=== PATIENT | male | born 1970 ===

== ENCOUNTER → 2021-06-13 11:27 | Outpatient (CLI) | payer OTHER, SELFPAY ==
[2021-06-13 14:54] LABS: COVID19 -Nasal RAPID Negative (Negative)
== END ==
PROVIDERS: Visit Provider Nurse Practitioner
DX: Z01.812 Encounter for preprocedural laboratory examination (principal); Z20.822 Contact with and (suspected) exposure to COVID-19
CPT/HCPCS: 87635

== ENCOUNTER 2021-06-15 08:35 | Observation (INO) | payer OTHER, SELFPAY ==
[2021-06-08 08:38] VITALS: BMI 24.3
[2021-06-15] VITALS (21 sets, daily range): BP systolic 94–147; BP diastolic 44–88; PULSE 55–77; RESP 8–18; TEMP 35.7–36.6; O2SAT 94–100; BMI 24.3
[2021-06-15] MEDS: LACTATED RINGERS 1,000 ML 42 ML IV ×2 (09:05→11:18)
--- NOTE | 2021-06-15 09:12 | PM.PREOP ---
Pre-operative Note COVID-19 COVID-19 status: Negative Result date/Date tested (Pos, Neg/Pending): 06/13/21 Interval Note History & Physical reviewed/Exam performed by Physician: Yes Changes to H&P: No
[2021-06-15] MEDS: CEFAZOLIN 1 GM VIAL 2 GM IV ×2 (09:26→17:21)
--- NOTE | 2021-06-15 10:03 | SUR.OPER ---
Prone on spine table, head in foam head support, padded chest and pelvic supports, gel pad at knees, lower legs supported by pillows; nipples, genitalia and toes free of pressure, arms secured on foam padded arm boards at <90 degrees abduction. Tape over blanket at thigh secured to table.
[2021-06-15] MEDS: BUPIVACAINE LIPOSOME 266 MG/20 ML VIAL INJ (10:12)
[2021-06-15] MEDS: BUPIVACAINE 0.25% (PF) VIAL 30 ML INJ (10:13)
--- NOTE | 2021-06-15 11:34 | P.OP_ITS ---
Operative Date/Time/Diagnoses Date of procedure: 06/15/21 Time of procedure: 11:34 Pre-op diagnosis: 1. L4-5, L5-S1 spinal stenosis 2. Hx of L5-S1 laminectomy with epidural scarring and radiculopathy 3. L5-S1 spondylolisthesis Post-op diagnosis: same Procedure & Clinicians Procedure: 1. L5-S1 Postero-lateral and posterior interbody fusion 2. L5-S1 interbody cage placement. 3. L5-S1 decompressive laminectomy with bilateral facetecomies 4. L5-S1 Posterior non-segmental instrumentation 5. L4-5 left hemilaminectomy 6. [place] of bone marrow from iliac crest 7. Utilization of microsurgical technique and operating microscope Same procedure as scheduled: Yes Indications: Patient has been having chronic back pain and worsening lumbar radiculopathy. Patient failed multiple conservative management with worsening pain weakness and numbness in her lower extremity. Patient has been having difficulty performing activity of daily living. After discussing risks benefits of treatment options, patient elected proceed with surgery. Surgeon: Scott Moura Conservation Enforcement Officer: Joe Ledesma Click Yes if Unassisted: No Anesthesia Type: General Operative Notes Closure Type: primary Specimen(s): none sent Prosthetic devices, grafts, tissues, transplants, or devices: Globus CREO MIs screws, Rise cage Estimated Blood Loss (mL): 50 Blood products transfused: none Procedure in detail: Patient was seen in the preoperative area. Risks and benefits of the surgery was discussed with the patient. Informed consent was obtained from the patient and placed in the chart. Surgical site was marked. Patient was taken to the operative room. General anesthesia was administered. Prophylactic antibiotic was given to the patient less than 30 min before the incision was made. Patient was placed into a prone position on the [place] table. Patient's back was then prepped and draped in the sterile fashion. Time- out was performed at this time. Using AP and lateral C-arm imaging the interval between L4-5 L5-S1 was identified and marked on patient's back. A 2 inch incision 2 in from midline was made on the left side first. The fascia was incised in line with skin incision. Globus MARS retractors was placed inside the incision and docked onto the L5 lamina. Using microsurgical technique and operating microscope, a L5 laminectomy and L5-S1 facetectomy was performed using a Kerrison rongeur. The disc space at L5-S1 was identified. And a total diskectomy was performed at L5- S1 level. The endplates were decorticated using a rasp and shaver. The total diskectomy and decortication was performed at L5-S1 level in order to to accomplish a L5-S1 fusion. The local bone from the laminectomy and facetectomy was saved for local bone grafting. After the total diskectomy and decortication was completed, Trifecta bone graft material was combined with local bone that was harvested earlier. At this time, a separate skin is incision was made over the iliac crest. A Jamshidi needle was inserted into the iliac crest through a separate skin incision. 5 cc of bone marrow aspiration was obtained through the separate skin incision using a Jamshidi needle from the iliac crest. The bone marrow aspiration was combined with local bone and the Trifecta bone grafting material. The bone grafting material was placed into the L5-S1 interbody space along with a expandable cage. The cage was expanded to its maximum height using the torque limiting screwdriver. During the process of laminectomy and decompression, a small pinhole size dural defect was encountered after removing a piece of large bone spur. The defect was too small to be surgically repaired. DuraGen and Tisseel was used to patch the defect. After the patch was completed no CSF leakage was visualized. At this time the MARS retractor was redirected over the L4 lamina. Using micro surgical technique and operating microscope, a L4-5 heminectomy was performed using the Kerrison rongeur. The ligamentum flavum was also resected at the side of the hemilaminectomy for further decompression of the epidural space. At this time a mirror image incision was made on the right side. The fascia was incised in line with the skin incision. Globus MARS retractor was inserted and docked onto the L5-S1 posterolateral gutter. Using the power drill, posterior- lateral decortication was performed at L5-S1 level until bleeding cortical bone was identified. The remaining bone grafting material was placed into the L5-S1 posterior lateral gutter he order to accomplish posterolateral fusion at the L5- S1 level. Using the double C-arm technique, pedicle screws were placed into the L5 and S1 pedicles bilaterally. This was done by placing the Jamshidi needle into the pedicles, then placing the guidewires over the Jamshidi needle, and finally placing the cannulated screws over the guidewires bilaterally. After the pedicle screws were placed, 2 titanium rods was locked into the heads of the pedicle screws using locking caps and torque limiting screwdriver. After all the hardware was placed, and confirmed with AP and lateral C-arm imaging, the wound was then irrigated with sterile normal saline and packed with Ray-Nereyda gauze for 3 min to accomplish hemostasis. After the gauze was removed the deep fascia was closed with #1 Vicryl suture. The subcutaneous layer was closed with 2-0 Vicryl. The skin was closed with skin manuela. Patient tolerated the procedure well. There were no complications. Complications: none Post-operative Condition: stable Disposition: PACU Plan for aftercare: Admit to inpatient hospital
--- NOTE | 2021-06-15 11:48 | DI.RAD.S_ITS ---
PROCEDURE: XR LUMBAR SPINE 2-3V INDICATIONS: L5-S1 TLIF TECHNIQUE: Frontal and lateral low resolution fluoroscopic spot film of the lower lumbar spine was obtained intraoperatively. COMPARISON: None. FINDINGS: Fluoroscopic low resolution spot films shows L5-S1 discectomy with fusion cage and posterior orlando and screw instrumentation in good position. IMPRESSION: Fluoroscopic guidance Approved by: Thierry Florentino M.D. on 06/15/2021 at 11:51
[2021-06-15] MEDS: fentaNYL 100 MCG/2 ML INJ IV ×2 (12:17→12:32)
[2021-06-15] MEDS: OXYCODONE/ACETAMINOPHEN 5/325 TABLET 1 TAB PO (12:40)
--- NOTE | 2021-06-15 13:11 | PC.NURSE ---
Day shift: Pt on AC unit from PACu at approx 1311.
--- NOTE | 2021-06-15 13:14 | PC.NURSE ---
Day shift: hE IS a&oX4. rEPORTS INCREASE IN BACK PAIN. cms OK AND CAN MOVE BILAT FEET. vs wnl. ra 98%. Tolerating foot SCD's. Agrees to ot get OOB w/o help from staff. Denies any nausea or chest pain. Will continue w/ plan of care.
[2021-06-15] MEDS: ACETAMINOPHEN 325 MG TABLET 650 MG PO ×2 (13:29→21:02)
[2021-06-15] MEDS: hydrOXYzine pamoate 25 MG CAPSULE PO ×2 (13:29→21:03)
[2021-06-15] MEDS: OXYCODONE IR 5 MG TABLET 10 MG PO ×2 (13:29→21:02)
[2021-06-15] MEDS: LACTATED RINGERS 1,000 ML 125 ML IV ×2 (13:30→21:59)
--- NOTE | 2021-06-15 16:40 | PT.IIE ---
Current Diagnoses Spondylolisthesis, lumbosacral region (06/15/21) Spinal stenosis, lumbar region without neurogenic claudication (06/15/21) Postlaminectomy syndrome, not elsewhere classified (06/15/21) Surgery Performed Operation Date: 06/15/21 11:15 Actual Procedures p L4-5 hemilaminectomy, L5-S1 TLIF w. posterior instrumentation(Not Applicable) - Scott Moura MD Medical History (Last Updated 06/08/21 @ 09:17 by Ayana Cline RN) Arthritis Embedded metal fragments Sciatic leg pain Seasonal allergies Physical Therapy Inpatient Evaluation/Re-Eval M1 PT/OT-IP Prior Functional Status Start: 06/15/21 13:37 Freq: NEEDED Status: Active Protocol: Document 06/15/21 16:40 AW (Rec: 06/15/21 16:59 AW [id number]) Medical Review Prior Functional Status Medical History Reviewed Yes Communication WNL. Pt is an effective verbal communicator. Mobility and Gait Independent without assistive device. Pt endorses LLE numbness with increased time on his feet. He denies falls. Activities of Daily Living and IADL's Independent with the exception of needing assist with shoes and socks when pain is high. Pt prefers to take soaking baths and is able to get in and out of the tub without assist. Prior Functional Level (Other details) Pt reports history of hemilamin in 2007. Social History Household Members significant other Living Arrangements House Number of Floors (Floors) One Floor Number of Stairs To Enter/Railing? 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 He has wainscotting around his toilet which he can use as needed for balance. 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 He is currently on FMLA leave to recover from surgery. He lives with his partner, Sasha, who has taken a week off of work to assist at home. M2 PT-IP Current Condition Start: 06/15/21 13:37 Freq: NEEDED Status: Active Protocol: Document 06/15/21 16:40 AW (Rec: 06/15/21 16:59 AW [id number]) Physical Therapy Current Condition Current Condition Evaluation Date 06/15/21 Treatment Diagnosis L4-5 hemilami; L5-S1 TLIF; impaired mobility and gait Onset Date 06/15/21 Precautions Lumbar Precautions Log Roll,No Twisting,Limit Bending,Lifting Restriction of 10 lbs,Gait Belt above Incisional Area M3 PT-IP Subjective Start: 06/15/21 13:37 Freq: NEEDED Status: Active Protocol: Document 06/15/21 16:40 AW (Rec: 06/15/21 16:59 AW [id number]) Subjective Physical Therapy Visit Type Type Initial Evaluation Visit Start Time 16:13 Visit Stop Time 16:40 Total Visit Minutes 27 Notes Pt's partner was present throughout. Number of SOAP PRESS FEEDER Visits 0 Physical Therapy Visit Comments Patient Comments Pt is willing to mobilize with PT Patient Goals Return home with SO support. Therapy Pain Assessment Pain When Pain Assessed At Rest Pain Present Pain Present Pain Reported Location low back Intensity 5 Scale Used Numeric (0 - 10) Pain Management Techniques Apply Cold,Re-positioning, Timing of Activity with Medications M4 PT-IP Mobility and Gait Start: 06/15/21 13:37 Freq: NEEDED Status: Active Protocol: Document 06/15/21 16:40 AW (Rec: 06/15/21 16:59 AW [id number]) PT-Bed Mobility Assessment Rolling Type of Rolling Log Rolling,Roll to Left Level of Assist Standby Assistance Supine to Sit Supine to Sit Standby Assistance Sit to Supine Sit to Supine Standby Assistance PT-Transfer Assessment Sit to and From Stand Sit to and from Stand Standby Assistance,Use of Upper Extremities Equipment Transfer Assistive Device Gait Belt,Front Wheeled Walker Orthotic/Prosthetic Devices or Brace: No Transfers Transfer Destination Bed,Toilet Transfer Technique ambulated with FWW Transfer Ability Level of Assist Standby Assistance Comments Mobility Comments Pt was in left sidelying as PT arrived. Educated pt on lumbar precautions and log roll bed mobility. Pt rolled further onto his left side and completed SL to sit transition SBA. BP 135/77 HR 66. He stood and used FWW to ambulate to the toilet, sitting to void SBA with light use of grab bar for support. He stood SBA and ambulated with FWW 150 feet SBA. He responded well to cues for posture and safe distance from trunk to walker frame. On return to the room, pt requested return to bed. He sat and used good log roll technique to return to left sidelying. Pt needed no assist to position himself. PT supplied fresh ice pack and armed the bed alarm. Informed RN of pt's mobility and encouraged pt to walk halls with nursing. Gait Assessment Gait Gait Assistance Required: Standby Assistance Distance (Feet) 150 Able to Maintain Weight Bearing Status Yes During Gait Assistive Devices Assistive Device Gait Belt,Front Wheeled Walker Orthotic/Prosthetic Devices or Brace: No Gait Deviations General Gait Pattern Antalgic,Flexed Trunk Factors Limiting Gait Function Factors Limiting Gait Function Pain Comments Gait Comments See mobility comments for details. Stair Climbing Assessment Comments Stair Climbing Comments Not assessed. PT-Balance Assessment Sitting Balance and Reactions Static Sitting Balance Ability Good Dynamic Sitting Balance Ability Good Standing Balance and Reactions Static Standing Balance Ability Good Dynamic Standing Balance Ability Good Device Used FWW M5 PT-IP Objective Assessments Start: 06/15/21 13:37 Freq: NEEDED Status: Active Protocol: Document 06/15/21 16:40 AW (Rec: 06/15/21 16:59 AW [id number]) Orientation Orientation/Cognition Level of Alertness Alert Orientation Name,Day of Week,Place, Situation Language Function Ability No Deficits Noted Safety Awareness Understands Safety Issues Memory Description No Deficits Noted Gross Range of Motion Upper Extremity ROM Assessment Within Functional Limits Lower Extremity ROM Assessment Within Functional Limits Strength Lower Extremity Strength Assessment Within Functional Limits Comments Strength Comments Grossly 4+/5 - 5/5 Sensation Assessment Sensation Gross Sensation WNL Muscle Tone Muscle Tone WNL Yes M6 PT-IP Treatment Start: 06/15/21 13:37 Freq: NEEDED Status: Active Protocol: Document 06/15/21 16:40 AW (Rec: 06/15/21 16:59 AW [id number]) Physical Therapy Treatment Education Education Provided Precautions,Weight Bearing Status,Post-Op Packet,Safety Other Treatments Other Treatment Performed Educated pt on PT plan of care , post op precautions, and safe use of FWW. M7 PT-IP Assessment and Plan Start: 06/15/21 13:37 Freq: NEEDED Status: Active Protocol: Document 06/15/21 16:40 AW (Rec: 06/15/21 16:59 AW [id number]) PT Summary Assessment and Plan Potential Rehabilitation Potential Good Status of Condition at Evaluation Evolving Summary Impairments Pain,ROM,Bed Mobility, Transfers,Gait Assessment Summary Florencio is a 51 yo man seen for PT evaluation on POD0 following L4-5 hemilaminectomy and L5-S1 TLIF. He is independent in all regards at baseline. He required no more than SBA for mobility on assessment and demonstrated good attention to post op precautions. PT anticipates he will be safe to discharge home with assist once medically stable. Pt will need to clear stairs prior to discharge. Goals Bed Mobility Goal Independent Transfer Goal Independent,Front Wheeled Walker Gait Goal Independent,Front Wheel Walker Gait Distance 250 Other Goals -up/down 2 steps with no rail SBA Days to Meet Goals 2 Frequency of Treatment Frequency Of Treatment Twice a Day Treatment Plan Physical Therapy Treatment Plan Bed Mobility Training,Transfer Training,Gait Training, Therapeutic Exercise,Balance Retraining,Post Op Education, Discharge Planning,Hot or Cold Pack Other Recommendations and Next Treatment review precautions; progress Focus gait; assess safety on stairs Precautions Lumbar Precautions Log Roll,No Twisting,Limit Bending,Lifting Restriction of 10 lbs,Gait Belt above Incisional Area Recommendations To Nursing Amount of Assist Needed Standby Assistance Discharge Recommendations PT Discharge Recommendations Home with Assistance Transportation Needs at Discharge Private Vehicle
[2021-06-16] MEDS: CEFAZOLIN 1 GM VIAL 2 GM IV (01:30)
[2021-06-16] MEDS: OXYCODONE IR 5 MG TABLET 10 MG PO (01:30)
[2021-06-16] MEDS: hydrOXYzine pamoate 25 MG CAPSULE PO (01:30)
[2021-06-16 02:22] VITALS: BP 114/75; PULSE 69; RESP 18; TEMP 36.4; O2SAT 95
[2021-06-16 07:10] VITALS: BP 120/71; PULSE 66; RESP 15; TEMP 36.6; O2SAT 97
[2021-06-16] MEDS: DOCUSATE 100 MG CAPSULE PO (07:42)
--- NOTE | 2021-06-16 07:48 | P.DS_ITS ---
History of Present Illness History of Present Illness Date Patient Seen: 06/16/21 Time Patient Seen: 07:48 Chief complaint: Low back pain and radiculopathy Narrative: The patient is complaining of mild back pain this morning, which is well controlled with current pain regimen. He denies any fevers, chills, night sweats. He states the numbness in his left lateral leg is improving postoperatively. He is still having some numbness on the lateral aspect of his left foot. He is working with physical therapy. Overall he is feeling well, and would like to go home today after discharge by Physical therapy. Discharge Providers Provider Discharge Date: 06/16/21 Primary care physician: Misael Puente DO Consults: 06/15/21 13:10 Consult to Occupational Therapy Evaluate & Treat Comment: Physician Instructions: Evaluate and treat Consult to Physical Therapy Evaluate & Treat Comment: Physician Instructions: Evaluate and Treat Discharge provider: Izabela Dong PA-C Summary Hospital Course Discharge Diagnosis: 1. L4-5, L5-S1 spinal stenosis 2. Hx of L5-S1 laminectomy with epidural scarring and radiculopathy 3. L5-S1 spondylolisthesis Hospital Course: Procedure: 1. L5-S1 Postero-lateral and posterior interbody fusion 2. L5-S1 interbody cage placement. 3. L5-S1 decompressive laminectomy with bilateral facetecomies 4. L5-S1 Posterior non-segmental instrumentation 5. L4-5 left hemilaminectomy 6. [place] of bone marrow from iliac crest 7. Utilization of microsurgical technique and operating microscope Same procedure as scheduled: Yes Indications: Patient has been having chronic back pain and worsening lumbar radiculopathy. Patient failed multiple conservative management with worsening pain weakness and numbness in her lower extremity. Patient has been having difficulty performing activity of daily living. After discussing risks benefits of treatment options, patient elected proceed with surgery. Surgeon: Scott Moura Developmental Mathematics Instructor: Joe Ledesma Click Yes if Unassisted: No Anesthesia Type: General Operative Notes Closure Type: primary Specimen(s): none sent Prosthetic devices, grafts, tissues, transplants, or devices: Globus CREO MIs screws, Rise cage Estimated Blood Loss (mL): 50 Blood products transfused: none Status at Discharge Cognitive/behavioral status at discharge: oriented Functional status at discharge: uses cane/walker Overall status at discharge: patient is progressing back to baseline Exam Vital Signs (past 8 hours): - 08/31/21 02:22 06/16/21 07:10 Temperature 97.5 F L 97.8 F Pulse Rate 69 66 Respiratory Rate 18 15 Blood Pressure 114/75 120/71 Pulse Oximetry 95 97 Oxygen Delivery Method Room Air Oxygen Flow Rate 0 Narrative Exam Narrative: 51-year-old male, resting comfortably in bed, no acute distress. His incision demonstrates some scant bloody drainage on the left lateral incision. Bilateral lower extremities with normal motor function. Sensation is mildly decreased on the left 1st webspace and left lateral calf. Both legs are warm and dry. Bilateral calves are soft, and nontender to palpation [facility] Medical History Arthritis Embedded metal fragments Sciatic leg pain Seasonal allergies Surgical History History of surgery Hx of laminectomy Social History household members: significant other Smoking Status: Current some day smoker alcohol intake: former Discharge Assessment & Plan Assessment and Plan Assessment: The patient is progressing well status post lumbar fusion Plan of Treatment: Weight-bearing as tolerated. Limit bending, lifting, twisting. Use Tylenol for [id number] pain, and oxycodone as needed for breakthrough moderate to severe pain. The plan is to discharge home today in stable condition, after cleared by Physical therapy Discharge Plan Discharge Plan Patient Disposition: Home Discharge orders & Medications Discharge Orders: Discharge (Order); Ordered 06/16/21 Ordered By: Izabela Dong Prescriptions: New acetaminophen 500 mg capsule 500 mg PO Q4H PRN (Reason: Pain, Mild (1-3)) Qty: 90 RF: 0 docusate sodium [DOK] 100 mg Capsule 100 mg PO BID PRN (Reason: constipation) Qty: 30 RF: 0 oxycodone 5 mg Tablet See Rx Instructions .ROUTE .COMPLEX PRN (Reason: Pain, Severe (7-10)) Qty: 42 RF: 0 acetaminophen [Tylenol Extra Strength] 500 mg tablet 500 mg PO Q4-6H MDD 6 tabs/day PRN (Reason: pain) Qty: 90 RF: 0 oxycodone 5 mg capsule 5 mg PO Q4H PRN (Reason: pain) Qty: 42 RF: 0 Continued Primatene Mist RF: 0 Follow up/Referrals: Misael Puente DO [Primary Care Provider] - Scott Moura MD [Physician] - (Postop appointment in 2 weeks ) Diet/Activity/Treatments Diet: Diet as Tolerated and Regular Activity: Limit bending, lifting, twisting. Use front wheeled walker Cold/Heat Therapy: Use ice as needed for pain Skin/Wound/Dressing Care Report to your healthcare provider any signs of infection, such as:: chills, fe ignacio, night sweats, unusual drainage and unusual redness Dressing: Okay to shower after 48 hours. Please change the dressing if it becomes wet, soiled, or saturated. Visit Report/Discharge Packet Instructions: DI for Transforaminal Lumbar Interbody Fusion Stand Alone Forms: Surgery Discharge Discharge Data Primary Care Provider: Misael Puente Attending Provider: Scott Moura
--- NOTE | 2021-06-16 09:17 | CM.DANOTE ---
Addendum entered by Carola Davey LPN 06/16/21 11:14: A check in after Rounds shows that pt did well with PT and left for home in company of at 1030 Original Note: Discharge Planning/Care Management DCP: assessment: case received, EMR reviewed, d/c order noted when cleared by PT Pt is a 51 year old male who admitted yesterday for a scheduled spinal surgery. Surgeon: Dr. Moura PT did see pt yesterday and he was doing well toward his plan for home with his partner Celena to provide supportive assist. Will discuss in Team Rounds and check in with pt to confirm. Payer: [employer] Pref CM Discharge Assessment Start: 06/16/21 09:16 Freq: Status: Active Protocol: Document 06/16/21 09:16 ITV (Rec: 06/16/21 09:17 ITV [id number]) Discharge Planning Assessment Advance Directives? No History Provided By Medical Record Prior Living Arrangements House Household Members significant other Pre-Anesthesia Assessment Start: 06/08/21 08:38 Freq: Status: Active Protocol: Document 06/08/21 08:38 CAB (Rec: 06/08/21 09:19 CAB [id number]) Pre-Anesthesia Assessment Patient Information Reviewed Via Phone Assessment Assessment Completed With Patient Diagnostic Results BMP/CMP,CBC,EKG Comment Outside labs/EKG scanned, COVID screen @ 06/13/21 Primary Care Provider Misael Puente Seen Specialist in Last 12 Months Yes Specialist Seen Orthopedist Primary Language Lithuanian Police Service Technician Required No Height 170.18 cm Weight 70.307 kg Body Mass Index (BMI) 24.3 Hearing Ability Normal Visual Impairment No Limitations Visual Assist None Dentition Type Teeth, Natural Present Barriers to Learning None Hx Anesthesia Reactions No Hx Family Anesthesia Reaction No Hx Malignant Hyperthermia No Hx Blood Transfusions No Anesthesia Review Requested No alcohol intake former Alcohol Intake Frequency Other: Quit 2011 Smoking Status Current some day smoker Smoking cigarettes per day 2 Substance Use Type does not use Pain Present Pain Reported Musculoskeletal Symptoms Abnormal Gait,Back Pain, Difficulty Walking History of Falling (Recent or History of No ) Patient is completely paralyzed or No completely immobile Mental Status Oriented to own ability Is patient on oxygen? No Does patient have KYLE/SOB No Hx Sleep Apnea No Currently Taking a Beta Laine No Can You Climb a Flight of Stairs Without Yes SOB Hx Chest Pain No Hx SOB No Hx Syncope or Dizziness No Anti-Coagulant Therapy No Has a Lens Cementer No Cardiac Testing No Hx Pacemaker/ICD No Pacemaker Rep Required? No Cardiac Clearance Received Not Applicable Diet Type At Home Regular dysphagia No Urinary Catheter Present No Hx Urinary Self Catheterization No Diabetes No HgbA1C 5.5 Date 05/21/21 Hx Drug Resistant Organism No Presence of External or Internal Medical No Devices Have you had any close contact with No someone diagnosed with COVID-19? Marital Status Single Lives With significant other Prior Living Arrangements House Number of Floors (Floors) One Floor Support System Significant Other Does the Patient Have Assistance After Yes Surgery Patient Discharge Plan Description Return Home Comment Pt advised overnight length of stay per surgeon Feels Safe in Current Environment Yes Been Physically Hurt or Threatened By a No Person in Current Environment Do you have thoughts of harming yourself None or others? Are you currently considering suicide? No Do you have a plan to hurt yourself or No Plan others? Do You Have Any Spiritual Beliefs That No May Affect Your HC Choices? Do You Have Any Cultural Practices That No May Affect Your HC Choices? Comment Congregation Who Can We Speak to About Patient's Care Family, friends Identifying Code for Release of Patient Declines to issue Information Health Care Proxy/Next of Kin Sasha Anton (S.O.) Health Care Proxy Emergency Contact Name Sasha Anton (S.O.) Emergency Contact Advance Directives? No Power of Geographic Information System Surveyor No PAC Instructions Durable medical equipment, Medications to take/avoid, Nasal antibiotic,No ETOH/ petroleum product on skin DOS, NPO,Pre-surgical wash,Sturdy shoes/comfortable clothes,Do not bring valuables and remove jewelry
--- NOTE | 2021-06-16 09:25 | OT.IP.EVAL ---
Current Diagnoses Spondylolisthesis, lumbosacral region (06/15/21) Spinal stenosis, lumbar region without neurogenic claudication (06/15/21) Postlaminectomy syndrome, not elsewhere classified (06/15/21) Surgery Performed Operation Date: 06/15/21 11:15 Actual Procedures p L4-5 hemilaminectomy, L5-S1 TLIF w. posterior instrumentation(Not Applicable) - Scott Moura MD Past Medical History (Last Reviewed 06/16/21 @ 07:51 by Izabela Dong PA-C) Arthritis Embedded metal fragments History of surgery Hx of laminectomy Sciatic leg pain Seasonal allergies Surgical History (Last Reviewed 06/16/21 @ 07:51 by Izabela Dong PA-C) History of surgery Hx of laminectomy Occupational Therapy Inpatient Evaluation/Re-Eval M1 PT/OT-IP Prior Functional Status Start: 06/15/21 13:37 Freq: NEEDED Status: Discharge Protocol: Document 06/15/21 16:40 AW (Rec: 06/15/21 16:59 AW [id number]) Medical Review Prior Functional Status Medical History Reviewed Yes Communication WNL. Pt is an effective verbal communicator. Mobility and Gait Independent without assistive device. Pt endorses LLE numbness with increased time on his feet. He denies falls. Activities of Daily Living and IADL's Independent with the exception of needing assist with shoes and socks when pain is high. Pt prefers to take soaking baths and is able to get in and out of the tub without assist. Prior Functional Level (Other details) Pt reports history of hemilamin in 2007. Social History Household Members significant other Living Arrangements House Number of Floors (Floors) One Floor Number of Stairs To Enter/Railing? 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 He has wainscotting around his toilet which he can use as needed for balance. 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 He is currently on FMLA leave to recover from surgery. He lives with his partner, Sasha, who has taken a week off of work to assist at home. M2 OT-IP Current Condition Start: 06/16/21 13:00 Freq: Status: Active Protocol: Document 06/16/21 09:25 [facility] (Rec: 06/16/21 13:14 [facility] [id number]) Occupational Therapy Current Condition Current Condition Evaluation Date 06/16/21 Treatment Diagnosis S/p L4-5, L5-S1 TLIF Diagnosis Onset Date 06/15/21 M3 OT- IP Subjective and Pain Start: 06/16/21 13:00 Freq: Status: Active Protocol: Document 06/16/21 09:25 [facility] (Rec: 06/16/21 13:14 [facility] [id number]) OT- Subjective Occupational Therapy Visit Type Type Initial Evaluation Visit Start Time 09:25 Visit Stop Time 09:45 Total Visit Minutes 20 Occupational Therapy Visit Comments Patient Comments Pt's significant other in the room durign OT eval. Patient/Caregiver Goals TO go home. OT Pain Assessment Pain When Pain Assessed During Mobility Pain Present Pain Present Pain Reported M4 OT- IP ADL's Start: 06/16/21 13:00 Freq: Status: Active Protocol: Document 06/16/21 09:25 [facility] (Rec: 06/16/21 13:14 [facility] [id number]) OT KNL-Bhtm-Dpmemej General Evaluation Self-Feeding Ability Independent OT ADL-Grooming General Evaluation Grooming Ability Independent OT ADL-Dressing General Eval Upper Body Dressing Ability Independent Lower Body Dressing Ability Standby Assistance Comments OT Dressing Comments Able to show pt LB dressing equipment and pt insistent that he is comfortable and able to cross his legs over in order to do his LB dressing needs. OT ADL-Toileting General Evaluation Toileting Ability Standby Assistance Comments OT Toileting Comments Pt able to do toileting needs on his own, Able to educated pt to lean or stand to wipe to best follow his back precautions. OT ADL-Bathing Comments OT Bathing Comments Pt states to shower at home. M5 OT- IP IADL's Start: 06/16/21 13:00 Freq: Status: Active Protocol: Document 06/16/21 09:25 [facility] (Rec: 06/16/21 13:14 [facility] [id number]) OT-Instrumental Activities of Daily Living Home Safety Awareness Awareness of Need for Assistance at Home Good Awareness Ability to Problem Solve Emergency Able to Problem Solve Situations Medication Management Medication Management Comments Pt's significant other to assist with his needs as needed. Money Management Money Management Comments Pt's significant other to assist with his needs as needed. Meal Preparation Meal Preparation Comments Pt's significant other to assist with his needs as needed. Senior Web Architect Senior Web Architect Comments Pt's significant other to assist with his needs as needed. M6 OT- IP Functional Cognition Start: 06/16/21 13:00 Freq: Status: Active Protocol: Document 06/16/21 09:25 [facility] (Rec: 06/16/21 13:14 [facility] [id number]) Cognitive Factors Limiting Selfcare Function Cognitive Ability Level of Alertness Alert Patient Orientation Name,Age,Birthday,Month,Date, Year,Day of Week,Place, Situation Attention Span Ability Capable of Focused Attention, Capable of Sustained Attention Ability to Follow Commands Able to Follow Multi-Step Commands Memory Description No Deficits Noted Safety Awareness Decreased Ability to Apply Precautions,Underestimates Need for Assistance Cognitive Comments Cognitive Assessment Comments Pt needing reminders to incorporate his back precautions for needs. Pt tends to twist during ADl and mobility needs. Pt's significant other has good awareness to cue to pt for safety of back precaution needs. Pt able to walk without the FWW , but encourage pt to use the FWW initially due to pets in the house and also to build up his over endurance and strength in his core gradually. OT- Vision and Hearing OT- Hearing Assessment OT- Hearing Assessment WFL M7 OT- IP Mobility and Balance Start: 06/16/21 13:00 Freq: Status: Active Protocol: Document 06/16/21 09:25 [facility] (Rec: 06/16/21 13:14 [facility] [id number]) OT- Bed Mobility Assessment Supine to Sit Supine to Sit Assist Standby Assistance Sit to Supine Sit to Supine Assist Standby Assistance Scooting Scooting to Edge of Bed Standby Assistance Scooting Up and Down in Bed Standby Assistance OT-Transfer Assessment Sit to and From Stand Sit to and from Stand Standby Assistance Transfers Transfer Ability Standby Assistance Technique Transfer Destination Bed,Toilet Transfer Technique Stand Step Pivot Devices Transfer Assistive Devices None,Gait Belt Comments Mobility Comments Pt needs cues to come down to his elbow to keep in a side lying position versus half twist while lying down to the bed. SBA without a device. OT- Gait Assessment Comments Gait Ability Comments SBA without a device but tried and best to use FWW. OT- Balance Assessment Sitting Balance and Reactions Static Sitting Balance Ability Normal Dynamic Sitting Balance Ability Normal Standing Balance and Reactions Static Standing Balance Ability Good M8 OT- IP Objective Assessments Start: 06/16/21 13:00 Freq: Status: Active Protocol: Document 06/16/21 09:25 [facility] (Rec: 06/16/21 13:14 [facility] [id number]) OT-Muscle Tone Assessment Muscle Tone WNL Yes M9 OT- IP Assessment and Plan Start: 06/16/21 13:00 Freq: Status: Active Protocol: Document 06/16/21 09:25 [facility] (Rec: 06/16/21 13:14 [facility] [id number]) OT Summary Assessment and Plan Potential Rehabilitation Potential Good Analytic Complexity at Evaluation Low Summary OT Impairments Pain,Bathing Progress Towards Goals Progressing Toward Goals Assessment Summary Pt low complexity and main barriers are steps and needing cues to follow his back precautions. Pt can be a little impulsive at times. Pt 's significant other to stay with him to assist him as needed and also aware to cue him to follow his back precautions. Goals Bathing Goal Independent Shower Transfer Goal Independent Days to Meet Goals 1 Frequency of Treatment Frequency Of Treatment Once a Day Treatment Plan OT Treatment Plan ADL Training,Functional Mobility,Patient/Family Education,Discharge Planning Discharge Recommendations OT Discharge Recommendations Home with Assistance Transportation Needs at Discharge Private Vehicle
--- NOTE | 2021-06-16 09:38 | PT.IPTN ---
Current Diagnoses Spondylolisthesis, lumbosacral region (06/15/21) Spinal stenosis, lumbar region without neurogenic claudication (06/15/21) Postlaminectomy syndrome, not elsewhere classified (06/15/21) Surgery Performed Operation Date: 06/15/21 11:15 Actual Procedures p L4-5 hemilaminectomy, L5-S1 TLIF w. posterior instrumentation(Not Applicable) - Scott Moura MD Physical Therapy Treatment Note M2 PT-IP Current Condition Start: 06/15/21 13:37 Freq: NEEDED Status: Active Protocol: Document 06/15/21 16:40 AW (Rec: 06/15/21 16:59 AW [id number]) Physical Therapy Current Condition Current Condition Evaluation Date 06/15/21 Treatment Diagnosis L4-5 hemilami; L5-S1 TLIF; impaired mobility and gait Onset Date 06/15/21 Precautions Lumbar Precautions Log Roll,No Twisting,Limit Bending,Lifting Restriction of 10 lbs,Gait Belt above Incisional Area M3 PT-IP Subjective Start: 06/15/21 13:37 Freq: NEEDED Status: Active Protocol: Document 06/16/21 09:31 HH (Rec: 06/16/21 09:37 [id number]) Subjective Physical Therapy Visit Type Type Treatment Note Visit Start Time 09:10 Visit Stop Time 09:30 Total Visit Minutes 20 Notes Pt's partner was present throughout. Number of FUR FINISHER SEAMSTRESS Visits 0 Physical Therapy Visit Comments Patient Comments Im doing fine and aidee been walking around the room Patient Goals Return home with SO support. Therapy Pain Assessment Pain When Pain Assessed At Rest Pain Present Pain Present Pain Reported Location low back Intensity 3 Scale Used Numeric (0 - 10) Pain Management Techniques Apply Cold,Re-positioning, Timing of Activity with Medications M4 PT-IP Mobility and Gait Start: 06/15/21 13:37 Freq: NEEDED Status: Active Protocol: Document 06/16/21 09:31 HH (Rec: 06/16/21 09:37 [id number]) PT-Bed Mobility Assessment Rolling Type of Rolling Log Rolling,Roll to Right Level of Assist Standby Assistance Supine to Sit Supine to Sit Standby Assistance Sit to Supine Sit to Supine Standby Assistance PT-Transfer Assessment Sit to and From Stand Sit to and from Stand Standby Assistance,Use of Upper Extremities Equipment Transfer Assistive Device Gait Belt,Front Wheeled Walker Orthotic/Prosthetic Devices or Brace: No Transfers Transfer Destination Bed Transfer Technique ambulated with FWW and none after Transfer Ability Level of Assist Standby Assistance Comments Mobility Comments pt was in bed with at bedside upon PT arrival. No c/ o noted and agreed to mobilize with PT. He recalled all 3/3 post op precautions and used log roll to sit up at EOB on R . He stood up with FWW and amb a lap of AC unit then completed PF step with FWW x 2 with SBA. He then walked back without FWW and demonstrated good stability. However, he stated his back started getting tired once he got back to his room. He returned to his bed after and OT came in for further assessment. Gait Assessment Gait Gait Assistance Required: Standby Assistance Distance (Feet) 360 Able to Maintain Weight Bearing Status Yes During Gait Assistive Devices Assistive Device None,Gait Belt,Front Wheeled Walker Orthotic/Prosthetic Devices or Brace: No Gait Deviations General Gait Pattern Antalgic,Flexed Trunk Factors Limiting Gait Function Factors Limiting Gait Function Pain Comments Gait Comments See mobility comments for details. Stair Climbing Assessment Technique/Endurance Stair Climbing Direction Ascend and Descend Stair Climbing Technique Step to Step Number of Steps Climbed 1 Stair Climbing Set # Repetitions (reps) 2 Comments Stair Climbing Comments See mobility comments for details. PT-Balance Assessment Sitting Balance and Reactions Static Sitting Balance Ability Good Dynamic Sitting Balance Ability Good Standing Balance and Reactions Static Standing Balance Ability Good Dynamic Standing Balance Ability Good Device Used FWW M5 PT-IP Objective Assessments Start: 06/15/21 13:37 Freq: NEEDED Status: Active Protocol: Document 06/15/21 16:40 AW (Rec: 06/15/21 16:59 AW [id number]) Orientation Orientation/Cognition Level of Alertness Alert Orientation Name,Day of Week,Place, Situation Language Function Ability No Deficits Noted Safety Awareness Understands Safety Issues Memory Description No Deficits Noted Gross Range of Motion Upper Extremity ROM Assessment Within Functional Limits Lower Extremity ROM Assessment Within Functional Limits Strength Lower Extremity Strength Assessment Within Functional Limits Comments Strength Comments Grossly 4+/5 - 5/5 Sensation Assessment Sensation Gross Sensation WNL Muscle Tone Muscle Tone WNL Yes M6 PT-IP Treatment Start: 06/15/21 13:37 Freq: NEEDED Status: Active Protocol: Document 06/15/21 16:40 AW (Rec: 06/15/21 16:59 AW [id number]) Physical Therapy Treatment Education Education Provided Precautions,Weight Bearing Status,Post-Op Packet,Safety Other Treatments Other Treatment Performed Educated pt on PT plan of care , post op precautions, and safe use of FWW. M7 PT-IP Assessment and Plan Start: 06/15/21 13:37 Freq: NEEDED Status: Active Protocol: Document 06/16/21 09:31 (Rec: 06/16/21 09:37 [id number]) PT Summary Assessment and Plan Potential Rehabilitation Potential Good Status of Condition at Evaluation Evolving Summary Impairments Pain,ROM,Bed Mobility, Transfers,Gait Progress Towards Goals Safe For Discharge Assessment Summary Florencio shows improved activity tolerance and good understanding of post op protocols. He completed step climbing and was able to amb without FWW for a lap of AC unit. He did get tired at the end of session. He is safe to DC home at this point with assistance. Frequency of Treatment Frequency Of Treatment Discharge Precautions Lumbar Precautions Log Roll,No Twisting,Limit Bending,Lifting Restriction of 10 lbs,Gait Belt above Incisional Area Recommendations To Nursing Amount of Assist Needed Standby Assistance Discharge Recommendations PT Discharge Recommendations Home with Assistance Transportation Needs at Discharge Private Vehicle
--- NOTE | 2021-06-16 10:17 | PC.NURSE ---
Day shift: Paperwork signed and all questions answered. Back dressing remains CDI. Instructed Pt and his S.O. on sterile dressing change if needed and supplied Coversites for this. Pt has all personal belongings and MD scripts. VS WNL and RA. Pain well controlled per DEC. OOB w/ PT/OT and tolerated well. His S.O. in room for d/c teachings. Taken to car his SO is driving in WC by RITESH Webb. Left Unit at approx 1025.
== END 2021-06-16 10:21 | disposition home or self-care (01) ==
LOC: OR 08:40 → AC 08:41
PROVIDERS: Admitting Provider Orthopaedic Surgery Orthopaedic Surgery of the Spine; PCP Family Medicine; Referring Provider Family Medicine; Visit Provider Orthopaedic Surgery Orthopaedic Surgery of the Spine
PROC: (CPT 20939; principal; 2021-06-15 09:30)
DX: M48.061 Spinal stenosis, lumbar region without neurogenic claudication (principal); M96.1 Postlaminectomy syndrome, not elsewhere classified; M43.17 Spondylolisthesis, lumbosacral region; F17.210 Nicotine dependence, cigarettes, uncomplicated
CPT/HCPCS: 20939; 63030; 63047; 22633; 22853; 22840; 72100; 76000; 82962; 97116; 97161; 97165; 99406; C1776; G0378; C9290; J0690; J1100; J1170; J1644; J2250; J2405; J2704; J3010